=== PATIENT | male | born 1955 | race Hispanic/Latino ===

== ENCOUNTER 2018-11-06 21:01 | Emergency (ER) | payer OTHER, SELFPAY ==
[2018-11-06] MEDS ORDERED: Ibuprofen 800 MG TAB ONE (21:24)
[2018-11-06] MEDS ORDERED: Adacel (T-DAP) 0.5 ML SYRINGE ONE (21:24)
== END 2018-11-06 21:48 | disposition home or self-care (01) ==
LOC: NAV ERS 21:01
DX: M79.644 Pain in right finger(s) (principal); E78.5 Hyperlipidemia, unspecified; I10 Essential (primary) hypertension; E11.9 Type 2 diabetes mellitus without complications; Z79.899 Other long term (current) drug therapy; Z79.84 Long term (current) use of oral hypoglycemic drugs
CPT/HCPCS: 90471; 90715

== ENCOUNTER 2022-05-28 16:46 | Emergency (ER) | payer OTHER, BC ==
[2022-05-28] MEDS ORDERED: Lidocaine 1% (PF) 30 ML VIAL ONE (17:43)
== END 2022-05-28 19:45 | disposition home or self-care (01) ==
LOC: NAV ERS 16:46
DX: S61.012A Laceration without foreign body of left thumb without damage to nail, initial encounter (principal); E11.9 Type 2 diabetes mellitus without complications; I10 Essential (primary) hypertension; E78.00 Pure hypercholesterolemia, unspecified; W25.XXXA Contact with sharp glass, initial encounter; Y93.89 Activity, other specified; Z79.84 Long term (current) use of oral hypoglycemic drugs; Z79.899 Other long term (current) drug therapy
CPT/HCPCS: 12004; J2001

== ENCOUNTER 2022-07-07 16:58 | Emergency (ER) | payer BC, MEDICARE ==
[2022-07-07] MEDS ORDERED: predniSONE 20 MG TAB ONE (18:50)
== END 2022-07-07 18:55 | disposition home or self-care (01) ==
LOC: NAV ERS 16:58
DX: M54.32 Sciatica, left side (principal); E11.9 Type 2 diabetes mellitus without complications; I10 Essential (primary) hypertension; E78.00 Pure hypercholesterolemia, unspecified; Z79.899 Other long term (current) drug therapy; Z79.84 Long term (current) use of oral hypoglycemic drugs
CPT/HCPCS: 72170; J7512